=== PATIENT | female | born 1955 | race Caucasian/White ===

== ENCOUNTER 2021-04-26 09:39 | Outpatient (CLI) | payer OTHER, MEDICARE, SELFPAY ==
--- NOTE | 2021-04-26 09:15 | DI.RAD_ITS ---
Exam(s) XR WRIST LT LIMITED EXAM: XR WRIST LT LIMITED CLINICAL HISTORY: LEFT WRIST FRACTURE. TECHNIQUE: 2D digital imaging was performed. COMPARISON: Outside images from 04/17/2021 CR EXP CARE WRIST LT MIN 3V from 04/17/2021 FINDINGS: No obvious fractures. However, there is a subtle nondisplaced linear lucency in the distal radius ag ain noted. Difficult to determine if this is a subtle fracture or nutrient artery canal. No change from the prior outside study. No fracture of the distal ulna and ulnar styloid. No significant ulna r variance. No carpal dislocation. IMPRESSION: As above. No radiographic change compared 04/17/2021. DATA REPOSITORY: RADIATION DOSE DELIVERED:
== END 2021-04-26 09:40 | disposition home or self-care (01) ==
LOC: DIORS 09:41
PROVIDERS: PCP Nurse Practitioner Family; Referring Provider Nurse Practitioner Family; Visit Provider Physician Assistant Surgical
DX: S52.592A Other fractures of lower end of left radius, initial encounter for closed fracture (principal); W10.9XXA Fall (on) (from) unspecified stairs and steps, initial encounter
CPT/HCPCS: 73100

== ENCOUNTER 2021-05-31 10:38 | Outpatient (CLI) | payer OTHER, MEDICARE, SELFPAY ==
--- NOTE | 2021-05-31 10:37 | DI.RAD_ITS ---
Exam(s) XR WRIST LT LIMITED EXAM: XR WRIST LT LIMITED CLINICAL HISTORY: left radius fx f/u. TECHNIQUE: 2D digital imaging was performed of the left wrist. Two images were obtained. PA and la teral views were obtained. COMPARISON: CR EXP CARE WRIST LT MIN 3V from 04/17/2021 CR XR WRIST LT LIMITED from 04/26/2021 FINDINGS: BONES: There is again seen a lucency in on the a ticket resurface of the distal left radius consisten t with nondisplaced fracture. No bony destructive lesion is seen. JOINTS: The carpal bones are normally aligned. SOFT TISSUE: Normal. IMPRESSION: Stable nondisplaced intra-articular distal left radial fracture. DATA REPOSITORY: RADIATION DOSE DELIVERED:
== END 2021-05-31 10:39 | disposition home or self-care (01) ==
LOC: DIORS 10:39
PROVIDERS: PCP Nurse Practitioner Family; Referring Provider Nurse Practitioner Family; Visit Provider Student in an Organized Health Care Education/Training Program
DX: S52.592A Other fractures of lower end of left radius, initial encounter for closed fracture (principal)
CPT/HCPCS: 73100

== ENCOUNTER 2023-02-06 14:11 | Outpatient (REF) | payer MEDICARE, SELFPAY ==
[2023-02-12 17:45] LABS: 2-OH-Ethyl-Flurazepam Negative ng/mL (Cutoff: 10); 7-NH-Clonazepam 1564 ng/mL (Cutoff: 10); 7-NH-Flunitrazepam Negative ng/mL (Cutoff: 10); Alpha OH-Alprazolam Negative ng/mL (Cutoff: 10); Alpha-OH Midazolam Negative ng/mL (Cutoff: 10); Alpha-OH-Triazolam Negative ng/mL (Cutoff: 10); Alprazolam Negative ng/mL (Cutoff: 10); Benzodiazepines Interpretation Positive.; Chlordiazepoxide Negative ng/mL (Cutoff: 10); Clobazam Negative ng/mL (Cutoff: 10); Clonazepam 26 ng/mL (Cutoff: 10); Diazepam Negative ng/mL (Cutoff: 10); Flurazepam Negative ng/mL (Cutoff: 10); Lorazepam Negative ng/mL (Cutoff: 10); Midazolam Negative ng/mL (Cutoff: 10); N-Desmethylclobazam Negative ng/mL (Cutoff: 10); Prazepam Negative ng/mL (Cutoff: 10); Temazepam Negative ng/mL (Cutoff: 10); Triazolam Negative ng/mL (Cutoff: 10); Zolpidem Carboxylic acid Negative ng/mL (Cutoff: 10)
== END 2023-02-06 14:12 | disposition home or self-care (01) ==
LOC: NCHCN 14:11
PROVIDERS: PCP Nurse Practitioner Family; Visit Provider Nurse Practitioner Family
DX: F41.8 Other specified anxiety disorders (principal); Z79.899 Other long term (current) drug therapy; Z51.81 Encounter for therapeutic drug level monitoring
CPT/HCPCS: 80346

== ENCOUNTER 2023-04-08 16:23 | Outpatient (REF) | payer MEDICARE, SELFPAY ==
[2023-04-08 19:33] LABS: ALT 24 U/L (14-59); AST 18 U/L (15-37); Anion Gap 7.3 mmol/L (3-11); BUN 10 mg/dL (7-18); CO2 28.7 mmol/L (21.0-32.0); Calcium 10.5 mg/dL (8.5-10.1); Calculated LDL 68 mg/dL (<100); Chloride 102 mmol/L (98-107); Cholesterol 146 mg/dL (<200); Estimated GFR 62.13 (mL/min/1.73m2); Glucose 105 mg/dL (74-106); HDL Cholesterol 55 mg/dL (40-60); Potassium 4.7 mmol/L (3.5-5.1); Sodium 138 mmol/L (136-145); Triglyceride 117 mg/dL (<150)
== END 2023-04-08 16:24 | disposition home or self-care (01) ==
LOC: NCHCN 16:23
PROVIDERS: PCP Nurse Practitioner Family; Visit Provider Nurse Practitioner Family
DX: E78.5 Hyperlipidemia, unspecified (principal)
CPT/HCPCS: 80048; 80061; 84450; 84460

== ENCOUNTER 2023-07-15 16:42 | Outpatient (REF) | payer MEDICARE, SELFPAY ==
[2023-07-15 20:52] LABS: ALT 29 U/L (14-59); AST 20 U/L (15-37); Albumin 4.3 g/dL (3.4-5.0); Alkaline Phosphatase 86 U/L (46-116); Anion Gap 5.9 mmol/L (3-11); BUN 12 mg/dL (7-18); Bilirubin, Total 0.6 mg/dL (0.2-1.0); CO2 30.1 mmol/L (21.0-32.0); CREATININE 1.1 mg/dL (0.55-1.02); Calcium 10.1 mg/dL (8.5-10.1); Chloride 102 mmol/L (98-107); Estimated GFR 55.42 (mL/min/1.73m2); Glucose 98 mg/dL (74-106); Potassium 4.5 mmol/L (3.5-5.1); Sodium 138 mmol/L (136-145); Total Protein 7.3 g/dL (6.4-8.2)
== END 2023-07-15 16:43 | disposition home or self-care (01) ==
LOC: NCHCN 16:42
PROVIDERS: PCP Nurse Practitioner Family; Visit Provider Nurse Practitioner Family
DX: E83.52 Hypercalcemia (principal)
CPT/HCPCS: 80053

== ENCOUNTER 2023-10-14 15:01 | Outpatient (REF) | payer MEDICARE, SELFPAY ==
[2023-10-14 18:55] LABS: Abs Immature Grans 0.02 10^3/uL (0.0-0.06); Absolute Basophil Count 0.08 10^3/uL (0.0-0.2); Absolute Lymphocyte Count 2.38 10^3/uL (1.2-3.4); Absolute Monocyte Count 0.42 10^3/uL (0.1-0.8); Absolute Neutrophil Count 3.28 10^3/uL (1.2-6.7); Basophils % 1.3; Eosinophils % 1.6; HGB 15.7 g/dL (11.2-15.7); Immature Grans % 0.3; Lymphocytes % 37.9; MCH 28.7 pg (27.0-33.0); MCHC 32.7 % (32.0-36.0); MCV 88 fL (80-95); MPV 10.8 fL (8.0-11.0); Monocytes % 6.7; Neutrophils % 52.2; Platelet Count 245 10^3/uL (130-400); RBC 5.47 10^6/uL (3.93-5.22); RDW 12.7 % (11.7-14.6); WBC 6.28 10^3/uL (4.4-10.8)
[2023-10-14 19:39] LABS: ALT 33 U/L (14-59); AST 23 U/L (15-37); Albumin 4.5 g/dL (3.4-5.0); Alkaline Phosphatase 100 U/L (46-116); Anion Gap 11.5 mmol/L (3-11); BUN 11 mg/dL (7-18); Bilirubin, Total 0.6 mg/dL (0.2-1.0); CO2 25.5 mmol/L (21.0-32.0); Chloride 104 mmol/L (98-107); Estimated GFR 61.75 (mL/min/1.73m2); Glucose 96 mg/dL (74-106); Potassium 4.4 mmol/L (3.5-5.1); Sodium 141 mmol/L (136-145); Total Protein 7.7 g/dL (6.4-8.2); Vitamin B12 290 pg/mL (193-986)
[2023-10-14 19:41] LABS: Folate > 20.0 ng/mL (8.6-20.0)
== END 2023-10-14 15:02 | disposition home or self-care (01) ==
LOC: NCHCN 15:01
PROVIDERS: PCP Nurse Practitioner Family; Visit Provider Nurse Practitioner Family
DX: R06.09 Other forms of dyspnea (principal)
CPT/HCPCS: 80053; 82607; 82746; 85025

== ENCOUNTER 2024-05-11 13:06 | Emergency (ER) | payer MEDICARE, SELFPAY ==
[2024-05-11 13:17] VITALS: BP 137/72; PULSE 88; RESP 14; TEMP 36.2; O2SAT 98
--- NOTE | 2024-05-11 14:00 | DI.RAD_ITS ---
Exam(s) XR TIB/FIB LT XR KNEE LT 2V AP,LAT EXAM: XR TIB/FIB LT CLINICAL HISTORY: leg pain. TECHNIQUE: 2D digital imaging was performed. Two views of the tibia and fibula and left knee. COMPARISON: CR XR KNEE LT 2V AP,LAT from 05/11/2024 FINDINGS: BONES: No acute fracture is present. No bony destructive lesion is seen. Joints: Femoral tibial joint spaces are maintained. Chondrocalcinosis present. Mild spurring at the articular aspect of the patella. The ankle is unremarkable. SOFT TISSUE: Focal area of soft tissue swelling seen anterior to the proximal tibia, below the level of the tibial tubercle. Mild diffuse soft tissue edema. IMPRESSION: Focal area of soft tissue swelling the anterior upper leg. No evidence of fracture. DATA REPOSITORY: RADIATION DOSE DELIVERED:
--- NOTE | 2024-05-11 14:00 | DI.US_ITS ---
Exam(s) US LOWER EXTREMITY VENOUS LT EXAM: US LOWER EXTREMITY VENOUS LT CLINICAL HISTORY: leg leg swelling and bruising. TECHNIQUE: Lower extremity venous ultrasound performed using grayscale, color-flow, and spectral Do ppler analysis. COMPARISON: CR XR KNEE LT 2V AP,LAT from 05/11/2024 FINDINGS: The common femoral, femoral and popliteal veins demonstrate normal compressibility, augmentation, and color Doppler. The posterior tibial veins are patent. No saphenous vein thrombosis or other superfi cial venous thrombosis is seen. No Cabrera's cyst is seen. The area of patient tenderness, in the ant erior upper leg, there is marked soft tissue edema as well as a localized fluid collection measuring roughly 7 x 4 x 7 cm. This is likely a posttraumatic fluid collection or hematoma. IMPRESSION: Anterior soft tissue hematoma and edema. No evidence of DVT. DATA REPOSITORY:
[2024-05-11 15:00] VITALS: BP 136/75; PULSE 75
--- NOTE | 2024-05-11 15:29 | ED.GENADUL_ITS ---
Discharge Plan Disposition Patient Disposition: Home Discharge Details Clinical Impression: Hematoma of left lower extremity Primary Care Provider: Nohelia Lynn ED Provider: Deangleo Arauz Home Meds and New Rx's Prescriptions: No Action acetaminophen 325 mg tablet 325 mg PO Q6H PRN aspirin [Adult Aspirin Regimen] 81 mg tablet,delayed release (DR/EC) 81 mg PO DAILY calcium carbonate-vitamin D3 600 mg(1,500mg) -200 unit tablet 1 tab PO DAILY clonazepam [Klonopin] 1 mg tablet 0.5 mg PO BID furosemide 20 mg tablet 20 mg PO DAILY meclizine 25 mg tablet 25 mg PO TID PRN metoprolol succinate 50 mg tablet extended release 24 hr 50 mg PO DAILY omeprazole 40 mg capsule,delayed release(DR/EC) 40 mg PO DAILY rosuvastatin 10 mg tablet 10 mg PO HS famotidine 20 mg tablet 20 mg PO DAILY isosorbide mononitrate 30 mg tablet extended release 24 hr 15 mg PO DAILY duloxetine [Cymbalta] 30 mg capsule,delayed release(DR/EC) 90 mg PO DAILY Discharge Instructions Additional Instructions: * Your x-ray and your ultrasound did not reveal an abnormality. There is no evidence of fracture or blood clot * You have a large hematoma which is just a collection of bruising and swelling. This does take some time to completely resolve * You can put an Fer wrap around your leg and make sure it stays elevated to help * Eventually this should completely go away. You can follow-up with your PCP for continued evaluation if needed. HPI General Date/Time Provider Initiated Documentation: 05/11/24 14:03 . Limitations to Documentation: no limitations . Information obtained by: patient . HPI Narrative: 68-year-old female with past medical history of hypertension on daily aspirin presents for evaluation of left lower leg trauma. She reports that about 2 weeks ago she tripped going up the stairs and hit the front part of her leg just below the knee. She reports that there has been significant bruising that is still present. The bruising now extends along the back of her leg and down her calf. She reports swelling and tenderness. She says that there is a fair amount of throbbing. She denies any numbness or tingling. She reports that she is able to walk on her leg fairly well without significant pain. But she is concerned about the bruising and swelling. Related Data Home Medications ?Medication ?Instructions ?Recorded ?Confirmed acetaminophen 325 mg tablet 325 mg PO Q6H PRN 04/26/21 05/11/24 aspirin 81 mg tablet,delayed 81 mg PO DAILY 04/26/21 05/11/24 release (Adult Aspirin Regimen) calcium 600 mg (as 1 tab PO DAILY 04/26/21 05/11/24 carbonate)-vitamin D3 5 mcg (200 unit) tablet clonazepam 1 mg tablet (Klonopin) 0.5 mg PO BID 04/26/21 05/11/24 famotidine 20 mg tablet 20 mg PO DAILY 04/26/21 05/11/24 furosemide 20 mg tablet 20 mg PO DAILY 04/26/21 05/11/24 isosorbide mononitrate 30 mg 15 mg PO DAILY 04/26/21 05/11/24 tablet,extended release 24 hr meclizine 25 mg tablet 25 mg PO TID PRN 04/26/21 05/11/24 metoprolol succinate 50 mg 50 mg PO DAILY 04/26/21 05/11/24 tablet,extended release 24 hr omeprazole 40 mg capsule,delayed 40 mg PO DAILY 04/26/21 05/11/24 release rosuvastatin 10 mg tablet 10 mg PO HS 04/26/21 05/11/24 duloxetine 30 mg capsule,delayed 90 mg PO DAILY 05/31/21 05/11/24 release (Cymbalta) Allergies Allergy/AdvReac Type Severity Reaction Status Date / Time No Known Allergies Allergy Verified 05/11/24 13:20 General Stated Complaint: Orthopedic AZUL: 4 Exam Narrative Exam Narrative: Review of Systems: All systems reviewed & are unremarkable except as noted in HPI and below Well-developed, no acute distress Unlabored respiratory effort Left lower leg with large hematoma and bruise just distal to the knee. Knee appears normal without effusion, there is tenderness over this hematoma. On the posterior aspect of the leg there is dependent bruising noted extending down the calf, calf is tense but compartments soft Course Vital Signs Vital signs: Vital Signs Temperature 36.2 C L 05/11/24 13:17 Pulse 88 05/11/24 13:17 Respiratory Rate 14 05/11/24 13:17 Blood Pressure 137/72 05/11/24 13:17 Pulse Oximetry 98 05/11/24 13:17 Temperature 36.2 C L 05/11/24 13:17 Temperature Source Oral 05/11/24 13:17 Pulse 75 05/11/24 15:00 Respiratory Rate 14 05/11/24 13:17 Respiratory Effort Normal 05/11/24 14:59 Blood Pressure 136/75 05/11/24 15:00 Blood Pressure Mean 95 05/11/24 15:00 Blood Pressure Position Sitting 05/11/24 13:17 Pulse Oximetry 98 05/11/24 13:17 Oxygen Delivery Method Room Air 05/11/24 13:17 Oxygen Flow Rate 0 05/11/24 13:17 Pain Level 5 05/11/24 13:17 Medical Decision Making Emergent evaluation of left lower leg trauma. Patient is on baby aspirin but no other anticoagulants. Trauma does sound a minor in terms of the mechanism however there is an extensive amount of bruising still present 2 weeks later. Initial differential includes fracture, coagulopathy, soft tissue contusion, DVT. Will get x-ray imaging and ultrasound to evaluate for DVT given the extent of the swelling and bruising. X-ray imaging of the left leg reviewed, there is no acute fracture. The radiologist report for the left lower extremity ultrasound does not reveal a DVT. Symptoms secondary to hematoma and swelling. Recommend Fer wrap and elevation. Would not stop the aspirin. Recommend close follow-up with PCP as needed. Quality:SDOH Health Related Social Needs: No Data to Display PFSH All Active Problems (Updated 05/11/24 @ 16:24 by Deangelo Arauz MD) Hematoma of left lower extremity (Acute) Closed fracture of left distal radius (Acute 04/16/21) Social History Smoking/Tobacco Use Status: Never Smoking risk assessment performed?: Yes Alcohol Intake: never Drug use: Never Substance use type: does not use Current gender identity: female Do you feel safe at home: Yes Do you feel safe in your relationship?: Yes
[2024-05-11 16:35] VITALS: BP 138/86; PULSE 87; RESP 18; O2SAT 97
== END 2024-05-11 16:36 | disposition home or self-care (01) ==
PROVIDERS: Emergency Provider Emergency Medicine; PCP Nurse Practitioner Family
DX: S80.12XA Contusion of left lower leg, initial encounter; W10.9XXA Fall (on) (from) unspecified stairs and steps, initial encounter; M79.605 Pain in left leg; I10 Essential (primary) hypertension; Z79.82 Long term (current) use of aspirin; Z79.899 Other long term (current) drug therapy
CPT/HCPCS: 99285; 73560; 73590; 93971; 99284

== ENCOUNTER 2024-11-23 16:10 | Outpatient (REF) | payer MEDICARE, SELFPAY ==
[2024-11-23 19:43] LABS: ALT 23 U/L (14-59); AST 19 U/L (15-37); Albumin 4.2 g/dL (3.4-5.0); Alkaline Phosphatase 103 U/L (46-116); Anion Gap 8.2 mmol/L (3-11); BUN 14 mg/dL (7-18); Bilirubin, Total 0.4 mg/dL (0.2-1.0); CO2 28.8 mmol/L (21.0-32.0); CREATININE 0.7 mg/dL (0.55-1.02); Calcium 9.6 mg/dL (8.5-10.1); Calculated LDL 60 mg/dL (<100); Chloride 104 mmol/L (98-107); Cholesterol 136 mg/dL (<200); Estimated GFR 94.15 (mL/min/1.73m2); Glucose 141 mg/dL (74-106); HDL Cholesterol 46 mg/dL (>or=50); Potassium 4.1 mmol/L (3.5-5.1); Sodium 141 mmol/L (136-145); Total Protein 7.3 g/dL (6.4-8.2); Triglyceride 151 mg/dL (<150)
== END 2024-11-23 16:11 | disposition home or self-care (01) ==
LOC: NCHCN 16:10
PROVIDERS: PCP Nurse Practitioner Family; Visit Provider Nurse Practitioner Family
DX: E78.5 Hyperlipidemia, unspecified (principal); I10 Essential (primary) hypertension
CPT/HCPCS: 80053; 80061